=== PATIENT | female | born 1995 | race Hispanic/Latino ===

== ENCOUNTER 2020-06-13 14:05 | Emergency (ER) | payer BC ==
[2020-06-13 15:21] LABS: Bacteria/HPF None Seen HPF (None Seen); Bilirubin Negative (Negative); Blood, Urine Trace (Negative); Clarity Clear (Clear); Glucose, Urine (Dipstick) Normal (Negative); Ketone, Urine Negative (Negative); Leukocyte Negative Leu/uL (Negative); Nitrite Negative (Negative); Protein, Urine (Dipstick) Negative (Neg-Trace); RBC/HPF 0-3 HPF (0-3); Specific Gravity, Urine 1.019 (1.002-1.036); Urobilinogen Normal mg/dL (Less than 2); WBC/HPF 0-3 HPF (0-3)
[2020-06-13 15:23] LABS: Pregnancy Test - Urine (BHCG) Negative (Negative); Pregu Control Background? CLEAR/WHITE (CLR/WHITE); Pregu Control Bar Appear? YES (CONTROL BAR); Specific Gravity 1.019 (1.002-1.036)
[2020-06-13 15:51] LABS: #Eosinphils 0.1 thou/uL (0.0-0.7); #Monocytes 0.5 thou/uL (0.11-0.59); #Neutrophils 4.7 thou/uL (1.40-6.50); %Basophils 0.5 % (0.0-1.0); %Eosinophils 1.1 % (0.0-10.0); %Lymphocytes 27.5 % (21.0-51.0); %Monocytes 7.2 % (0.0-10.0); %Neutrophils 63.7 % (42.0-75.0); Hemoglobin 14.4 g/dL (12.0-16.0); Mean Corpuscular Hemoglobin 31.9 pg (27.0-31.0); Mean Corpuscular Volume 93.7 fL (78.0-98.0); Mean Platelet Volume 7.4 fL (7.4-10.4); Platelet Count 287 thou/uL (130-400); RBC Distribution Width 11.6 % (11.5-14.5); Red Blood Cell (RBC) Count 4.51 mill/uL (4.20-5.40); White Blood Cell (WBC) Count 7.4 thou/uL (4.8-10.8)
--- NOTE | 2020-06-13 16:02 | ULT ---
Exam: Pelvic ultrasound HISTORY: Patient states vaginal bleeding on 06/06/2020 and reported history of . Provided history on today's examination is lower abdominal pain in first trimester . Patient's recent test here at Hospital is reported to be negative. COMPARISON: None TECHNIQUE: Multiple grayscale and color Doppler images were obtained in a transvaginal pelvic ultraso und. Spectral analysis of the Doppler waveforms of the ovaries were performed. FINDINGS: CERVIX: Unremarkable UTERUS: Normal in size without focal abnormality. ENDOMETRIAL STRIPE: 3 mm which is within normal limits for a normal menstruating female patient. No f luid or fluid collection is seen in the endometrial canal. No free fluid is present. RIGHT OVARY: Normal flow, without focal mass. LEFT OVARY: Normal flow, without focal mass. IMPRESSION: Normal-appearing uterus and bilateral ovaries.
[2020-06-13] MEDS ORDERED: Lidocaine 1% PF 5 ML VIAL ONE (17:55)
[2020-06-13] MEDS ORDERED: cefTRIAXone\\ROCEPHIN 250 MG VIAL ONE (17:55)
[2020-06-16 21:54] LABS: Chlamydia by PCR Not Detected (NotDetected); GC by PCR Not Detected (NotDetected)
== END 2020-06-13 18:11 | disposition home or self-care (01) ==
LOC: ERS 14:05
DX: N73.9 Female pelvic inflammatory disease, unspecified (principal); A59.9 Trichomoniasis, unspecified
CPT/HCPCS: 36415; 76856; 81003; 81015; 81025; 84702; 85025; 86900; 86901; 87480; 87491; 87510; 87591; 87660; J0696

== ENCOUNTER 2021-06-10 16:06 | Emergency (ER) | payer SELFPAY ==
[2021-06-10 17:29] LABS: Bacteria/HPF 3+ HPF (None Seen); Bilirubin Negative (Negative); Blood, Urine 1+ (Negative); Clarity Turbid (Clear); Glucose, Urine (Dipstick) Normal (Negative); Ketone, Urine Negative (Negative); Leukocyte 75 Leu/uL (Negative); Nitrite Negative (Negative); Protein, Urine (Dipstick) 30 mg/dL (Neg-Trace); Specific Gravity, Urine 1.019 (1.002-1.036); Transitional Epithelial 0-3 HPF (None Seen); Urobilinogen Normal mg/dL (Less than 2); WBC/HPF 21-50 HPF (0-3)
[2021-06-10 17:38] LABS: #Eosinphils 0.1 thou/uL (0.0-0.7); #Lymphocytes 1.9 thou/uL (1.20-3.40); #Monocytes 0.5 thou/uL (0.11-0.59); #Neutrophils 8.4 thou/uL (1.40-6.50); %Basophils 0.3 % (0.0-1.0); %Lymphocytes 17.2 % (21.0-51.0); %Monocytes 4.9 % (0.0-10.0); %Neutrophils 76.6 % (42.0-75.0); Hemoglobin 15.2 g/dL (12.0-16.0); Mean Corpuscular HGB CONC 33.1 g/dL (32.0-36.0); Mean Corpuscular Hemoglobin 29.9 pg (27.0-31.0); Mean Corpuscular Volume 90.4 fL (78.0-98.0); Mean Platelet Volume 7.7 fL (7.4-10.4); Platelet Count 376 thou/uL (130-400); RBC Distribution Width 12.7 % (11.5-14.5); Red Blood Cell (RBC) Count 5.07 mill/uL (4.20-5.40)
[2021-06-10 17:48] LABS: BHCG - Serum Negative (NEGATIVE); Pregs Control Background? CLEAR/WHITE (CLR/WHITE); Pregs Control Bar Appear? YES (CONTROL BAR)
[2021-06-10 17:59] LABS: ALT (SGPT) 15 U/L (8-55); AST (SGOT) 15 U/L (5-34); Albumin 4.4 g/dL (3.5-5.0); Alkaline Phosphatase 103 U/L (40-110); Anion Gap 14 mmol/L (10-20); BUN (Urea Nitrogen) 11 mg/dL (7.0-18.7); Bilirubin, Total 0.3 mg/dL (0.2-1.2); Calc. Creatinine Clearance 0 mL/min (70-130); Calcium 9.7 mg/dL (7.8-10.44); Carbon Dioxide 22 mmol/L (22-29); Chloride 105 mmol/L (98-107); Globulin 4.3 g/dL (2.4-3.5); Glucose 94 mg/dL (70-105); Potassium 3.8 mmol/L (3.5-5.1); Protein, Total 8.7 g/dL (6.0-8.3); Sodium 137 mmol/L (136-145)
[2021-06-10] MEDS ORDERED: Ketorolac Tromethamine 30 MG/ML VIAL ONE (18:05)
== END 2021-06-10 18:55 | disposition home or self-care (01) ==
LOC: ERS 16:06
DX: R10.9 Unspecified abdominal pain (principal); E11.9 Type 2 diabetes mellitus without complications; K21.9 Gastro-esophageal reflux disease without esophagitis; F17.210 Nicotine dependence, cigarettes, uncomplicated
CPT/HCPCS: 36415; 74176; 80053; 81003; 81015; 83605; 83690; 84703; 85025; 87040; 87086; 94760; 96374; J1885

== ENCOUNTER 2022-12-27 16:56 | Emergency (ER) | payer OTHER, SELFPAY ==
[2022-12-27 18:36] LABS: BHCG - Serum Negative (NEGATIVE); Pregs Control Background? CLEAR/WHITE (CLR/WHITE); Pregs Control Bar Appear? YES (CONTROL BAR)
== END 2022-12-27 19:26 | disposition home or self-care (01) ==
LOC: ERS 16:56
DX: M54.9 Dorsalgia, unspecified (principal); E11.9 Type 2 diabetes mellitus without complications; K21.9 Gastro-esophageal reflux disease without esophagitis; F17.210 Nicotine dependence, cigarettes, uncomplicated; W20.8XXA Other cause of strike by thrown, projected or falling object, initial encounter
CPT/HCPCS: 36415; 72070; 72100; 84703